=== PATIENT | female | born 1990 | race American Indian/Alaskan Native ===

== ENCOUNTER 2019-08-14 15:08 | Emergency (ER) | payer BC ==
[2019-08-14 17:22] VITALS: BP 125/75
--- NOTE | 2019-08-14 17:52 | Emergency Department Report ---
Chief Complaint: Upper Respiratory Infection Stated Complaint: FLU LIKE SYMPTOMS Time Seen by Provider: 08/14/19 17:16 - HPI History of Present Illness: This is a 28 y.o. F. that presents to the ER with sore throat, fever, chills, headache, and bodyache x 4-5 days. Taking OTC cold and flu medication with improvement of symptoms. Patient concerned of possible flu because similar symptoms 2-3 months ago. - ROS Review of Systems: Constitutional: denies: chills, fever ENT: congestion and sore throat. denies: ear pain Respiratory: denies: shortness of breath, wheezing, cough Cardiovascular: denies: chest pain, palpitations Gastrointestinal: denies: abdominal pain, nausea, diarrhea Musculoskeletal: admits: myalgia. denies: back pain, joint swelling, arthralgia, Skin: denies: rash, lesions Neurological: admits: headache. denies: weakness, paresthesias Psychiatric: denies: anxiety, depression - Exam Vital Signs: Vital Signs 08/14/19 17:21 Temperature 99 F Pulse Rate 86 Respiratory 16 Rate Blood Pressure 125/75 O2 Sat by Pulse 100 Oximetry Physical Exam: General: Vital signs noted. No distress. Alert and acting appropriately. HEENT: Yes Pharyngeal Erythema (erythematous posterior pharynx, uvula midline), Yes Moist Mucous Membranes, Yes Rhinorrhea (turbinates congested with clear discharge), No Tenderness over sinuses, No Pharyngeal Exudates, No Conjuctival Injection, No Frontal Tenderness Ear: Neither TM Bulge, Neither TM Erythema, Neither EAC Pain, Neither EAC Discharge Neck: Yes Supple, No Adenopathy Lungs: Yes Good Air Exchange, No Wheezes, No Ronchi, No Stridor, No Cough, No Labored Respirations, No Retractions, No Use of Accessory Muscles, No Other Abnormal Lung Sounds Heart: Yes Regular, No Murmur Abdomen: Yes Normal Bowel Sounds, No Tenderness, No Peritoneal Signs Skin: No Rash, No Edema Neurologic: Alert and oriented, no deficits. MSE screening note: Focused history and physical exam performed. Due to findings the following was ordered: ED Medical Decision Making - Medical Decision Making This is a 28-year-old female that presents with sore throat, fever, chills, headache, and bodyache x 4-5 days. Patient is stable and was examined by me. Normal vital signs. No acute distress. Mild congestion on exam. So peritonsilar swelling or exudate, sinuses nontender to percussion. Findings are susceptible of upper respiratory infvection. Start cepacol, flonase, zyrtec, and benzonatate. Referral to dermatology and PCP for continued care. At time of discharge, the patient does not seem toxic or ill in appearance. Patient agrees to discharge treatment plan of care. No further questions noted by the patient. ED Disposition for MSE Clinical Impression: Upper respiratory infection Qualifiers: URI type: acute nasopharyngitis (common cold) Qualified Code(s): J00 - Acute nasopharyngitis [common cold] Disposition: TO HOME OR SELFCARE Is pt being admited?: No Condition: Stable Instructions: Upper Respiratory Infection (ED) Prescriptions: Benzocaine/Menthol [Cepacol Sore Throat Lozenge] 1 each MM Q2H PRN #14 lozenge PRN Reason: Sore Throat Fluticasone [Flonase] 1 spray NS QDAY #1 bottle Benzonatate [Tessalon Perles] 100 mg PO Q8HR PRN #30 capsule PRN Reason: Cough Cetirizine HCl [Zyrtec 10mg tab] 10 mg PO DAILY #30 tablet Referrals: [facility] [Outside] - 3-5 Days [facility] [Outside] - 3-5 Days [facility] [Outside] - 3-5 Days Forms: Work/School Release Form(ED) Time of Disposition: 17:52
== END 2019-08-14 18:01 | disposition home or self-care (01) ==
LOC: ED 15:08
DX: J06.9 Acute upper respiratory infection, unspecified (principal); M79.10 Myalgia, unspecified site
CPT/HCPCS: 99282